=== PATIENT | female | born 1955 | race Caucasian/White ===

== ENCOUNTER 2018-10-17 08:56 | Emergency (ER) | payer OTHER ==
[~2018-10-17] VITALS: Ht 157.5 cm; Wt 65.9 kg
[~2018-10-17 08:56] MED LIST: ASPI81TA42 PO; ISOS10TA2 PO
[2018-10-17 11:20] VITALS: BP 112/68
[2018-10-17] MEDS: TraMADol HCL 50 MG TABLET PO ONE (11:56)
== END 2018-10-17 12:03 | disposition home or self-care (01) ==
LOC: EMS 08:57
DX: S20.211A Contusion of right front wall of thorax, initial encounter (principal); W18.39XA Other fall on same level, initial encounter; Y93.89 Activity, other specified; Y92.89 Other specified places as the place of occurrence of the external cause; Y99.8 Other external cause status
CPT/HCPCS: 71101

== ENCOUNTER 2022-01-25 09:32 | Emergency (ER) | payer OTHER ==
[~2022-01-25] VITALS: Ht 162.6 cm; Wt 72.7 kg
[2022-01-25 09:55] LABS: BASOPHILS % (AUTO) 0.3 % (0.0-2.0); EOSINOPHILS % (AUTO) 1.8 % (1.0-6.0); HEMATOCRIT 22.7 % (36-46); HEMOGLOBIN 7.1 g/dL (12.0-16.0); LYMPHOCYTES # (AUTO) 1.9 K/uL (1.0-4.8); LYMPHOCYTES % (AUTO) 17.5 % (22.0-44.0); MEAN CORPUSCULAR HEMOGLOBIN 24.6 pg (26.0-34.0); MEAN CORPUSCULAR VOLUME 79 fL (80-100); MONOCYTES # (AUTO) 1.1 K/uL (0.1-1.0); NEUTROPHILS # (AUTO) 7.6 K/uL (1.8-7.7); NEUTROPHILS % (AUTO) 70.4 % (40.0-70.0); PLATELET COUNT (AUTO) 365 K/uL (150-450); RED BLOOD CELL COUNT(AUTO) 2.87 MIL/uL (4.00-5.20); RED CELL DISTRIBUTION WIDTH 18.6 % (11.5-14.5)
[2022-01-25 10:06] LABS: ANION GAP 6 mmol/L (8-16); CALCIUM, TOTAL 8.5 mg/dL (8.8-10.5); CARBON DIOXIDE 26 mmol/L (22-29); CHLORIDE 104 mmol/L (98-107); CREATININE 0.78 mg/dL (0.60-1.30); GLOMERULAR FILTR. RATE CALC > 60 mL/min (>60); GLUCOSE,RANDOM 92 mg/dL (70-110); POTASSIUM 3.6 mmol/L (3.5-5.1); SODIUM SERUM 136 mmol/L (136-145); UREA NITROGEN, BLOOD 24 mg/dL (7-18)
[2022-01-25 10:10] LABS: PROTHROMBIN TIME 10.6 SEC (9.4-11.6)
[2022-01-25 10:12] LABS: ALANINE AMINOTRANSFERASE 28 U/L (12-78); ALBUMIN 2.8 g/dL (3.4-5.0); ALKALINE PHOSPHATASE 57 U/L (46-116); ASPARTATE AMINOTRANSFERASE 16 U/L (15-37); BILIRUBIN,TOTAL 0.2 mg/dL (0.1-1.0); CREATINE KINASE, TOTAL ONLY 62 U/L (26-192); TOTAL PROTEIN, SERUM 6.8 g/dL (6.4-8.2)
[2022-01-25 10:15] LABS: B-TYPE NATRIURETIC PEPTIDE 43 pg/mL (0-100)
[2022-01-25 12:00] VITALS: BP 100/63
[2022-01-25 12:15] VITALS: BP 94/55
[2022-01-25 12:30] VITALS: BP 106/68
[2022-01-25 13:00] VITALS: BP 110/53
[2022-01-25 13:30] VITALS: BP 100/60
[2022-01-25] MEDS ORDERED: SODIUM CHLORIDE 0.9% 500 ML IV ONE (13:45)
[2022-01-25 13:52] LABS: HEMATOCRIT 25.9 % (36-46); HEMOGLOBIN 8.2 g/dL (12.0-16.0)
[2022-01-25 17:09] VITALS: BP 103/62
== END 2022-01-25 18:36 | disposition home or self-care (01) ==
LOC: EMS 09:32
DX: D64.9 Anemia, unspecified (principal); R10.13 Epigastric pain; K21.9 Gastro-esophageal reflux disease without esophagitis; I10 Essential (primary) hypertension
CPT/HCPCS: 36415; 36430; 71045; 80053; 82550; 83880; 84484; 85014; 85018; 85025; 85610; 85730; 86850; 86900; 86901; 86923; 93005; 99285; J7040; P9016

== ENCOUNTER 2022-07-31 05:16 | Emergency (ER) | payer MEDICARE, OTHER ==
[~2022-07-31] VITALS: Ht 165.1 cm; Wt 70.0 kg
[2022-07-31] MEDS ORDERED: ASPI-1450 PO (05:28)
[2022-07-31] MEDS ORDERED: ISOS30TA92 PO (05:28)
[2022-07-31 06:24] LABS: BASOPHILS % (AUTO) 0.4 % (0.0-2.0); EOSINOPHILS % (AUTO) 2.6 % (1.0-6.0); HEMATOCRIT 29.8 % (36-46); HEMOGLOBIN 9.4 g/dL (12.0-16.0); LYMPHOCYTES # (AUTO) 1.9 K/uL (1.0-4.8); LYMPHOCYTES % (AUTO) 17.5 % (22.0-44.0); MEAN CORPUSCULAR HEMOGLOBIN 28.6 pg (26.0-34.0); MEAN CORPUSCULAR HGB CONC 31.7 G/dL (31.0-37.0); MEAN CORPUSCULAR VOLUME 90 fL (80-100); MONOCYTES % (AUTO) 9.4 % (2.0-9.0); NEUTROPHILS # (AUTO) 7.7 K/uL (1.8-7.7); NEUTROPHILS % (AUTO) 70.1 % (40.0-70.0); PLATELET COUNT (AUTO) 335 K/uL (150-450); RED CELL DISTRIBUTION WIDTH 16.4 % (11.5-14.5)
[2022-07-31 06:28] LABS: ANION GAP 5 mmol/L (8-16); CALCIUM, TOTAL 8.7 mg/dL (8.8-10.5); CARBON DIOXIDE 30 mmol/L (22-29); CHLORIDE 107 mmol/L (98-107); CREATININE 0.68 mg/dL (0.60-1.30); GLOMERULAR FILTR. RATE CALC > 60 mL/min (>60); GLUCOSE,RANDOM 94 mg/dL (70-110); POTASSIUM 4.1 mmol/L (3.5-5.1); SODIUM SERUM 142 mmol/L (136-145); UREA NITROGEN, BLOOD 10 mg/dL (7-18)
[2022-07-31 06:30] LABS: INR 0.9 (0.9-1.1); PROTHROMBIN TIME 9.8 SEC (9.4-11.6)
[2022-07-31 06:33] LABS: B-TYPE NATRIURETIC PEPTIDE 65 pg/mL (0-100)
[2022-07-31 06:34] LABS: ALANINE AMINOTRANSFERASE 44 U/L (12-78); ALBUMIN 2.8 g/dL (3.4-5.0); ALKALINE PHOSPHATASE 70 U/L (46-116); ASPARTATE AMINOTRANSFERASE 27 U/L (15-37); BILIRUBIN,TOTAL 0.2 mg/dL (0.1-1.0); TOTAL PROTEIN, SERUM 6.6 g/dL (6.4-8.2)
[2022-07-31 07:37] LABS: APPEARANCE,URINE CLEAR (CLEAR); BILIRUBIN,URINE NEGATIVE (NEGATIVE); GLUCOSE, URINE (UA) NEGATIVE (NEGATIVE); KETONES,URINE NEGATIVE (NEGATIVE); LEUKOCYTE ESTERASE ,URINE NEGATIVE (NEGATIVE); NITRATE,URINE NEGATIVE (NEGATIVE); OCCULT BLOOD,URINE NEGATIVE (NEGATIVE); PH,URINE 7.5 (5.0-8.0); PROTEIN,URINE NEGATIVE (NEGATIVE); UROBILINOGEN,URINE <=1.0 mg/dL (<=1.0)
[2022-07-31 07:52] VITALS: BP 137/76
[2022-07-31] MEDS ORDERED: KETOROLAC TROMETHAMINE 60 MG/2 ML VIAL IM ONE (08:15)
== END 2022-07-31 08:27 | disposition home or self-care (01) ==
LOC: EMS 05:17
DX: R07.89 Other chest pain (principal); I10 Essential (primary) hypertension; Z87.19 Personal history of other diseases of the digestive system
CPT/HCPCS: 99285; 71045; 80053; 81003; 83880; 84484; 85025; 85610; 85730; 36415; 93005; 96372; J1885

== ENCOUNTER 2025-08-16 05:57 | Day surgery (SDC) | payer OTHER ==
[~2025-08-16] VITALS: Ht 165.1 cm; Wt 70.5 kg
[~2025-08-16 05:57] MED LIST changes: +ASPI-1450 PO; -ASPI81TA42 PO; +ATOR20TA65 PO; -ISOS10TA2 PO; +ISOS30TA92 PO; +SODIUM CHLORIDE 0.9% 1,000 ML ONE
[2025-08-16] MEDS ORDERED: FLUMAZENIL 0.1 MG/ML 5 ML VIAL IVP ONE (06:28)
[2025-08-16] MEDS ORDERED: SODIUM TETRADECYL SULFATE 3% 60 MG/2 ML VIAL IVP ONE (06:29)
[2025-08-16] MEDS ORDERED: EPINEPHrine 1:10,000 [1 MG/10 ML] SYRINGE ONE (06:29)
[2025-08-16] MEDS ORDERED: NALOXONE HCL 0.4 MG/ML VIAL ONE (06:29)
[2025-08-16] MEDS ORDERED: ATROPINE SULFATE 0.1 MG/ML 10 ML SYRINGE IVP ONE (06:29)
[2025-08-16] MEDS: SODIUM CHLORIDE 0.9% 1,000 ML IV ONE (06:44)
[2025-08-16] MEDS ORDERED: PROPOFOL 1% ISO-OSM 1000 MG/100 ML BOTTLE ONE (12:30)
[2025-08-16] MEDS ORDERED: PROPOFOL 1% 20 ML VIAL IVP ONE (12:30)
[2025-08-16] MEDS ORDERED: LIDOCAINE/PF 2% 5 ML SYRINGE IVP ONE (12:30)
== END 2025-08-16 09:20 | disposition home or self-care (01) ==
LOC: SDS 05:57
PROVIDERS: ATTEND Surgery
DX: K25.5 Chronic or unspecified gastric ulcer with perforation (principal); K44.9 Diaphragmatic hernia without obstruction or gangrene; K25.9 Gastric ulcer, unspecified as acute or chronic, without hemorrhage or perforation; K31.89 Other diseases of stomach and duodenum
CPT/HCPCS: 43239; J2704 ×2; J3490; J7030; 88305; J0169; J0461; J1200; J2312